=== PATIENT | female | born 1970 ===

== ENCOUNTER 2023-03-13 07:10 | Outpatient (CLI) | payer OTHER | END 2023-03-13 07:19 | disposition home or self-care (01) | LOC: RAD 07:10 | PROVIDERS: ATTEND Urology | DX: N20.0 Calculus of kidney (principal) ==

== ENCOUNTER 2023-03-30 07:23 | Outpatient (CLI) | payer OTHER | END 2023-03-30 07:36 | disposition home or self-care (01) | LOC: TOM 07:23 | PROVIDERS: ATTEND Urology | DX: N20.0 Calculus of kidney (principal) ==